=== PATIENT | male | born 1975 | race African-American/Black ===

== ENCOUNTER 2018-01-02 17:20 | Emergency (ER) | payer OTHER ==
[~2018-01-02] VITALS: Ht 170.2 cm; Wt 99.7 kg
[2018-01-02] MEDS ORDERED: MOTRIN800 MG PO (19:03)
[2018-01-02 19:41] VITALS: BP 130/77
== END 2018-01-02 19:45 | disposition home or self-care (01) ==
LOC: EME 17:20
DX: M79.671 Pain in right foot (principal); R22.41 Localized swelling, mass and lump, right lower limb
CPT/HCPCS: 73630; 93971; 99281; 99283